=== PATIENT | male | born 1995 | race Caucasian/White ===

== ENCOUNTER 2016-10-14 17:25 | Emergency (ER) | payer OTHER ==
[~2016-10-14] VITALS: Ht 188 cm; Wt 181.5 kg
[~2016-10-14 17:25] MED LIST: CLINDAMYCIN HC300 MG PO; FIORICET W/CODE1 CAP PO; IMITREX6 MG/0.51; LAC PO; NAP500; NOR10T; ROB500; TYLENOL W/CODEI30 M PO; ULT50; VENTOLIN H0.09 MG/A1 IH
[2016-10-14 19:43] VITALS: BP 158/83
== END 2016-10-14 19:43 | disposition home or self-care (01) ==
LOC: ED 17:25
DX: S83.422A Sprain of lateral collateral ligament of left knee, initial encounter (principal); S83.282A Other tear of lateral meniscus, current injury, left knee, initial encounter; J45.909 Unspecified asthma, uncomplicated; W22.8XXA Striking against or struck by other objects, initial encounter; Y93.89 Activity, other specified; Y92.89 Other specified places as the place of occurrence of the external cause; Y99.8 Other external cause status
CPT/HCPCS: J1885; Q0092

== ENCOUNTER 2016-11-17 14:10 | Emergency (ER) | payer OTHER ==
[~2016-11-17] VITALS: Ht 188 cm; Wt 176.9 kg
[2016-11-17 16:52] LABS: PLATELET COUNT 269 x10^3mcL (130-400); RED CELL DISTRIBUTION WIDTH 13.4 % (11.5-14.5)
[2016-11-17 16:57] LABS: CALCIUM 9.1 mg/dL (8.5-10.1); CARBON DIOXIDE 24.4 mmol/L (21-32); CHLORIDE SERUM 102 mmol/L (98-107); GFR1 > 60 mL/min; GLUCOSE SERUM 93 mg/dL (74-106); POTASSIUM SERUM 3.6 mmol/L (3.5-5.1); SODIUM SERUM 138 mmol/L (136-145)
[2016-11-17 17:01] LABS: ALBUMIN 4.1 g/dL (3.4-5.0); ALKALINE PHOSPHATASE 71 U/L (46-116); ALT/SGPT 48 U/L (16-63); AST/SGOT 28 U/L (15-37); BILIRUBIN TOTAL 1.8 mg/dL (0.20-1.00); MAGNESIUM 1.5 mg/dL (1.8-2.4); TOTAL PROTEIN, SERUM 7.8 g/dL (6.4-8.2)
[2016-11-17 17:37] LABS: BAND NEUTROPHIL 0 % (0-10); BASOPHIL 0 % (0-2); MONOCYTE 8 % (0-7); SEGMENTED NEUTROPHILS 80 % (37-75)
[2016-11-17 17:39] LABS: PLATELET MORPHOLOGY PLATELETS NORMAL; rbc morphology (normal/abnorm) NORMAL (NORMAL)
[2016-11-17 18:24] LABS: microscopic required? YES; urine erythrocyte TRACE (NEGATIVE)
[2016-11-17 18:58] VITALS: BP 167/41
== END 2016-11-17 18:58 | disposition home or self-care (01) ==
LOC: ED 14:10
PROVIDERS: Emergency Medicine
DX: L03.115 Cellulitis of right lower limb (principal); M79.1 Myalgia; R11.0 Nausea; J45.909 Unspecified asthma, uncomplicated; R03.0 Elevated blood-pressure reading, without diagnosis of hypertension; Z79.899 Other long term (current) drug therapy
CPT/HCPCS: J0690; J1885; J2270; J2405; J7030; Q0092

== ENCOUNTER 2016-11-30 16:20 | Emergency (ER) | payer OTHER ==
[~2016-11-30] VITALS: Ht 188 cm; Wt 176.9 kg
[2016-11-30 18:41] VITALS: BP 148/90
== END 2016-11-30 19:22 | disposition home or self-care (01) ==
LOC: ED 16:20
DX: S92.912A Unspecified fracture of left toe(s), initial encounter for closed fracture (principal); J45.909 Unspecified asthma, uncomplicated; X58.XXXA Exposure to other specified factors, initial encounter; Y93.89 Activity, other specified; Y99.8 Other external cause status; Y92.89 Other specified places as the place of occurrence of the external cause
CPT/HCPCS: J0690; J1885

== ENCOUNTER 2018-02-06 17:56 | Emergency (ER) | payer OTHER ==
[~2018-02-06] VITALS: Ht 188 cm; Wt 186.0 kg
[2018-02-06 18:36] VITALS: Ht 188 cm; Wt 186.0 kg
[2018-02-06 20:09] LABS: BASOPHIL % 0.3 % (0-2); PLATELET COUNT 224 x10^3mcL (130-400); RED CELL DISTRIBUTION WIDTH 13.4 % (11.5-14.5)
[2018-02-06 20:19] LABS: CALCIUM 8.5 mg/dL (8.5-10.1); CARBON DIOXIDE 25.9 mmol/L (21-32); CHLORIDE SERUM 106 mmol/L (98-107); CREATININE SERUM 0.9 mg/dL (0.7-1.3); GFR1 > 60 mL/min; GLUCOSE SERUM 98 mg/dL (74-106); POTASSIUM SERUM 3.6 mmol/L (3.5-5.1); SODIUM SERUM 143 mmol/L (136-145)
[2018-02-06 20:24] LABS: ALBUMIN 3.4 g/dL (3.4-5.0); ALKALINE PHOSPHATASE 71 U/L (46-116); ALT/SGPT 43 U/L (16-63); AST/SGOT 25 U/L (15-37); BILIRUBIN TOTAL 0.9 mg/dL (0.20-1.00); TOTAL PROTEIN, SERUM 7.2 g/dL (6.4-8.2)
[2018-02-06 21:55] VITALS: BP 125/73
== END 2018-02-06 21:55 | disposition home or self-care (01) ==
LOC: ED 17:56
PROVIDERS: Emergency Medicine
DX: J20.9 Acute bronchitis, unspecified (principal); L03.115 Cellulitis of right lower limb; J45.909 Unspecified asthma, uncomplicated
CPT/HCPCS: J0696; J3490; Q0092